=== PATIENT | female | born 1945 | race Caucasian/White ===

== ENCOUNTER 2021-04-27 14:40 | Emergency (ER) | payer MEDICARE, SELFPAY ==
[2021-04-27 15:05] VITALS: BP 167/76; PULSE 84; RESP 18; TEMP 36.9; O2SAT 97; BMI 21.7
--- NOTE | 2021-04-27 15:28 | ECG_ITS ---
[facility] Test Date: 2021-04-27 Pat Name: Claribel Frey Department: Room: Gender: Female Therapeutic Recreation Specialist: : 1945 Requested By: Richie Nath Order Number: [id number] Kelsi MD: Cynthia Alejandre M.D. Measurements Intervals [place] Rate: 83 P: 67 MI: 155 QRS: 65 QRSD: 81 T: 45 QT: 365 QTc: 430 Interpretive Statements SINUS RHYTHM MODERATE ST DEPRESSION [0.05+ mV ST DEPRESSION] INTERPRETATION BASED ON A DEFAULT AGE OF 40 YEARS No previous ECG available for comparison Electronically Signed On 04-28-2021 13:15:56 COLOR PRINT INSPECTOR by Cynthia Alejandre M.D. [id number]
--- NOTE | 2021-04-27 15:28 | XRR_ITS ---
PROCEDURE INFORMATION: Exam: XR Chest Exam date and time: 04/27/2021 3:28 PM Age: 75 years old Clinical indication: Pain; Chest pressure; Additional info: Chest pain TECHNIQUE: Imaging protocol: XR of the chest. Views: 1 view. COMPARISON: No relevant prior studies available. FINDINGS: Lungs: Unremarkable. No consolidation. Pleural spaces: Unremarkable. No pleural effusion. No pneumothorax. Heart/Mediastinum: Ascending thoracic aorta appears somewhat prominent, chest CT could further evaluate this. Bones/joints: Unremarkable. XR/XR chest 1V portable [id number] IMPRESSION: 1. Lungs are clear 2. Ascending thoracic aorta appears somewhat prominent, chest CT could further evaluate this. Radiation Dose CTDIVOL = (mGy): DLP = (mGy-cm)
[2021-04-27 15:48] LABS: Basophils # 0.1 10^3/uL (0.0-0.1); Basophils % 0.6 %; Eosinophils % 0.4 %; Hematocrit 38.2 % (37.0-47.0); Hemoglobin 12.3 g/dL (11.5-15.3); Lymphocytes # 1.6 10^3/uL (0.8-4.8); Lymphocytes % 15.7 %; Mean Corpuscular HGB Conc 32.2 g/dL (30.0-36.0); Mean Corpuscular Hemoglobin 26.6 pg (28.0-34.0); Mean Corpuscular Volume 82.7 fl (81-99); Mean Platelet Volume 9.9 fL (7.4-10.4); Monocytes # 0.5 10^3/uL (0.2-0.9); Neutrophils # 7.99 10^3/uL (1.8-7.7); Neutrophils % 77.8 %; Nucleated Red Blood Cells % 0 %; Platelet Count 336 10^3/cmm (130-400); Red Blood Count 4.62 10^6/uL (4.1-5.3); Red Cell Distribution Width 13.3 % (12.1-15.1); White Blood Count 10.3 10^3/uL (4.0-10.0)
[2021-04-27 16:00] LABS: INR 0.97 (0.8-1.2)
[2021-04-27 16:01] LABS: Partial Thromboplastin Time 35.1 SECONDS (23.9-36.7)
[2021-04-27 16:08] LABS: Troponin(5th) Baseline 31 ng/L (0-10)
[2021-04-27 16:16] LABS: Alanine Aminotransferase 14 U/L (0-33); Albumin Level 4.5 g/dL (3.5-5.2); Alkaline Phosphatase 92 IU/L (35-105); Anion Gap 20.7 (5-19); Aspartate Amino Transferase 17 U/L (0-32); Blood Urea Nitrogen 15 mg/dL (8-23); Calcium 9.4 mg/dL (8.5-10.5); Carbon Dioxide 24 mmol/L (22-29); Chloride 90 mmol/L (98-107); Globulin 2.6 g/dL (1.3-4.6); Glucose 139 mg/dL (65-115); Lipase 10 U/L (13-60); NT Pro B Type Natriuretic Pept 485 pg/mL (0-450); Osmolality Calculated 273 mOsm/kg (285-295); Potassium 4.7 mmol/L (3.5-5.1); Sodium 130 mmol/L (136-145); Total Bilirubin 0.3 mg/dL (0.15-1.2); Total Protein 7.1 g/dL (6.6-8.7)
--- NOTE | 2021-04-27 16:39 | W.ED.CHESTPA ---
HPI - Chest Pain General: Chief Complaint: Chest Pain Stated Complaint: Chest Pain Time Seen by Provider: 04/27/21 15:10 History of Present Illness: HPI narrative: This patient presents to our emergency department because of chest pain symptoms. She states she has been having intermittent chest pain symptoms off and on for the last 2 weeks. She states they are unpredictable in their onset and their duration. She states it is predominantly burning sensation in her lower chest upper abdomen and up into her upper chest. She states that she is here in the emergency department today because she has had similar symptoms most of the day. She states that she does not have any associated shortness of breath or radiation of the pain. She denies fevers chills cough or other constitutional complaints. She states she had an angiogram 11 years ago that was normal without any evidence of coronary artery disease at that time. She states however that she has had 2 siblings at an early age because of coronary artery disease she thinks. She smoked very brief time in her teens but has not smoked since. She has diabetes as well as hypertension that she takes medications faithfully for those conditions. She has not been ill otherwise. She states she has not had any dark tarry stools or blood in her stools. She does take omeprazole on a daily basis. Onset: during rest Pain location: substernal, epigastric and subxiphoid Relieving factors: nothing Associated symptoms: Deny dyspnea, fever(s), nausea, palpitations or vomiting Review of Systems Const: Denies: fever(s), chills or body aches Eyes: Denies: change in vision or blurry vision ENMT: Denies: throat pain or odynophagia Card: Reports: chest pain; Denies: palpitations or irregular heart rhythm Resp: Denies: dyspnea, productive cough or non-productive cough GI: Denies: nausea, vomiting, constipation or hematochezia : Denies: flank pain, difficulty voiding, dysuria or urinary frequency Musc: Denies: neck pain, back pain, extremity pain or extremity swelling Skin/Breast: Denies: rash Neuro: Denies: headache(s), numbness in extremities or weakness in extremities Psych: Denies: anxiety Endo: Denies: polyuria, polydipsia or tired all the time Zac/Lymph: Denies: easy bruising [facility] ED PFSH: Medical History Anxiety Hyperlipidemia Hypertension Pharyngitis Type 2 diabetes mellitus Surgical History Status post appendectomy Status post cholecystectomy Status post hysterectomy Family History (Updated 08/21/20 @ 11:05 by Jade Mccord LPN) Other CAD (coronary artery disease) Social History Smoking and tobacco status: never smoked Alcohol intake: never Physical Exam Const: COMMON NORMALS: no acute distress, patient oriented x3, healthy appearing and alert HENMT: COMMON NORMALS: normocephalic and atraumatic HEAD & SCALP: normocephalic and atraumatic MOUTH: other (Mask per protocol) Eye: COMMON NORMALS: Equal, round and reactive pupils present, EOMs intact bilaterally, conjunctivae normal, no scleral icterus and no papilledema CONJUNCTIVA: Yes conjunctivae normal PUPIL: Yes Equal, round and reactive pupils present DIRECT OPHTHALMOSCOPY: Yes no papilledema Neck/C-Spine: COMMON NORMALS: full ROM, no lymphadenopathy, supple, no JVD, Thyroid normal and No carotid bruits THYROID: Thyroid normal Chest: COMMONS NORMALS: normal inspection of the chest and normal palpation of entire chest wall Resp: COMMON NORMALS: normal respiratory effort, No retractions, No use of accessory muscles, clear to auscultation bilaterally and percussion normal AUSCULTATION: clear to auscultation bilaterally PERCUSSION: percussion normal Cardio: COMMON NORMALS: no JVD, regular rate, regular rhythm, No murmurs present (Cardio) and Peripheral pulses 2+ throughout RATE: regular rate RHYTHM: regular rhythm PERIPHERAL PULSES: Peripheral pulses 2+ throughout GI: COMMON NORMALS: Normal to inspection, nondistended, normoactive bowel sounds present, Soft to palpation, non-tender, No hepatosplenomegaly present and no masses PALPATION: Yes Soft to palpation and Yes No hepatosplenomegaly present : COMMON NORMALS: Yes no CVA tenderness BLADDER/KIDNEY EXAM: Yes no CVA tenderness Back/Pelvis: COMMON NORMALS: no CVA tenderness, thoracic and lumbar spine normal to inspection, no thoracic nor lumbar tenderness and thoraco-lumbar ROM normal Extremity: COMMON NORMALS: normal to inspection, full ROM, capillary refill normal, no clubbing, cyanosis or edema, no calf tenderness and no pedal edema Neuro: COMMON NORMALS: patient oriented x3, no focal motor deficits, no sensory deficits noted and gait normal SENSORIUM/ORIENTATION: Yes alert SPEECH: speech normal Skin: COMMON NORMALS: no rashes or lesions noted GENERAL SKIN EXAM: no rashes or lesions noted Course Reevaluation(s): Reevaluation #1: Patient states she still having some epigastric burning. Her troponin has fallen from her initial reading. Her blood pressure is now 157/76. No other new or focal findings. We will go ahead and give her a gram of Carafate and reassess but I do not feel this represents ongoing myocardial ischemia. Reevaluation #2: Patient states she feels markedly better after the Carafate. Discussed current findings and the limitations of both patient and spouse. I do not feel that this patient is having ACS or any ongoing myocardial ischemia. She does have a high anxiety state and apparently was prescribed Valium recently but does not think that that medication works for her as it makes her dizzy. She previously was taking Librium 10 mg three times a day for her underlying anxiety and irritable bowel. Advised her to stop taking the Valium and we will continue her on Carafate in addition to her omeprazole for the next 2 weeks. We will also prescribe her a short course of Librium until she can get back with her regular doctor. We also discussed return precautions in detail regarding ongoing chest pain shortness of breath or other cardiovascular symptoms. Both she and her spouse acknowledged our discussion and were appreciative of care. Stable for discharge. Vital Signs: Vital signs: Vital Signs Temperature 98.4 F 04/27/21 15:05 Pulse Rate 76 04/27/21 18:07 Respiratory Rate 18 04/27/21 18:07 Blood Pressure 176/81 04/27/21 18:07 Pulse Oximetry 96 04/27/21 18:07 MDM - Chest Pain Lab Data: Labs: Lab Results 04/27/21 04/27/21 04/27/21 15:27 15:27 15:27 WBC 10.3 10^3/uL H 10 ^3/uL (4.0-10.0) RBC 4.62 10^6/uL 10^6 /uL (4.1-5.3) Hgb 12.3 g/dL g/dL (11.5-15.3) Hct 38.2 % % (37.0-47.0) MCV 82.7 fl fl (81-99) MCH 26.6 pg L pg (28.0-34.0) MCHC 32.2 g/dL g/dL (30.0-36.0) RDW 13.3 % % (12.1-15.1) Plt Count 336 10^3/cmm 10^3 /cmm (130-400) MPV 9.9 fL fL (7.4-10.4) Neut % (Auto) 77.8 % % Lymph % (Auto) 15.7 % % [place] % (Auto) 5.0 % % Eos % (Auto) 0.4 % % Baso % (Auto) 0.6 % % Neut # (Auto) 7.99 10^3/uL H 10 ^3/uL (1.8-7.7) Lymph # (Auto) 1.6 10^3/uL 10^3/ uL (0.8-4.8) Marion # (Auto) 0.5 10^3/uL 10^3/ uL (0.2-0.9) Eos # (Auto) 0.0 10^3/uL 10^3/ uL (0.0-0.8) Baso # (Auto) 0.1 10^3/uL 10^3/ uL (0.0-0.1) Nucleated RBC % (a uto) 0 % % Nucleated RBCs # 0.0 /100WBC /100W BC PT 13.20 SECONDS SEC ONDS (12.1-14.9) INR 0.97 (0.8-1.2) APTT 35.1 SECONDS SECO NDS (23.9-36.7) Sodium 130 mmol/L L mmol /L (136-145) Potassium 4.7 mmol/L mmol/L (3.5-5.1) Chloride 90 mmol/L L mmol/ L (98-107) Carbon Dioxide 24 mmol/L mmol/L (22-29) Anion Gap 20.7 H (5-19) BUN 15 mg/dL mg/dL (8-23) Creatinine 0.7 mg/dL mg/dL (0.5-0.9) GFR Calculation Not Reportable Glucose 139 mg/dL H mg/dL (65-115) Calculated Osmolal ity 273 mOsm/kg L mOs m/kg (285-295) Calcium 9.4 mg/dL mg/dL (8.5-10.5) Total Bilirubin 0.3 mg/dL mg/dL (0.15-1.2) AST 17 U/L U/L (0-32) ALT 14 U/L U/L (0-33) Alkaline Phosphata se 92 IU/L IU/L (35-105) Troponin T Baselin e Troponin T 120 Min [place] Troponin T NT-Pro-B Natriuret Pep 485 pg/mL H pg/mL (0-450) Total Protein 7.1 g/dL g/dL (6.6-8.7) Albumin 4.5 g/dL g/dL (3.5-5.2) Globulin 2.6 g/dL g/dL (1.3-4.6) Lipase 10 U/L L U/L (13-60) 04/27/21 04/27/21 15:27 18:06 WBC RBC Hgb Hct MCV MCH MCHC RDW Plt Count MPV Neut % (Auto) Lymph % (Auto) [place] % (Auto) Eos % (Auto) Baso % (Auto) Neut # (Auto) Lymph # (Auto) Marion # (Auto) Eos # (Auto) Baso # (Auto) Nucleated RBC % (a uto) Nucleated RBCs # PT INR APTT Sodium Potassium Chloride Carbon Dioxide Anion Gap BUN Creatinine GFR Calculation Glucose Calculated Osmolal ity Calcium Total Bilirubin AST ALT Alkaline Phosphata se Troponin T Baselin e 31 ng/L H ng/L (0-10) Troponin T 120 Min [place] 26.41 ng/L H ng/L (0-10) Delta Troponin T -4.59 ABS# L ABS# (0-10) NT-Pro-B Natriuret Pep Total Protein Albumin Globulin Lipase EKG Data^: EKG 1: Attestation: I personally reviewed and interpreted this EKG as follows: (EKG shows a ventricular rate of [address] depression however based upon her ST segment compared with [place] segments I do not feel that this represents ST depression at this time. No other abnormalities noted on EKG at this time.) Discharge Plan Discharge Patient Disposition: Home Clinical Impression: Atypical chest pain, Chronic gastroesophageal reflux disease, H/O irritable bowel syndrome Condition: Stable Prescriptions: New Carafate 1 gram tablet 1 g PO TID 28 Days Qty: 84 RF: 0 chlordiazepoxide HCl 10 mg capsule 10 mg PO TID PRN (Reason: anxiety) Qty: 14 RF: 0 No Action metformin 1,000 mg tablet 1,000 mg PO BID RF: 0 glipizide 10 mg tablet 10 mg PO BID RF: 0 Januvia 50 mg tablet 50 mg PO DAILY RF: 0 atenolol 50 mg tablet 50 mg PO DAILY RF: 0 amlodipine [Norvasc] 5 mg tablet 5 mg PO DAILY RF: 0 montelukast [Singulair] 10 mg tablet 10 mg PO DAILY RF: 0 ascorbic acid (vitamin C) 500 mg capsule, extended release 500 mg PO DAILY RF: 0 dicyclomine 10 mg capsule 10 mg PO BID RF: 0 Maximum Daily Multivitamin 18-0.4 mg tablet PO RF: 0 chlordiazepoxide HCl 10 mg capsule 10 mg PO DAILY PRNRF: 0 atorvastatin [Lipitor] 10 mg tablet 10 mg PO DAILY RF: 0 amoxicillin 875 mg tablet 875 mg PO BID 10 Days Qty: 20 RF: 0 Discharge Orders: Discharge ED (Routine); Ordered 04/27/21 Ordered By: Richie Nath Referrals: Chuy Barakat MD [Primary Care Provider] - Discharge Diet: Usual diet Discharge Activity: Resume usual activity Patient Instructions: Opioid Safety Activity Restrictions/Additional Instructions: Do not take any more Valium. Continue all your usual medications. I have prescribed Carafate to use for the next 2-4 weeks. I also given you a few days of additional Librium until you can get with your physician to represcribe that medication. Should you develop any prolonged chest pain, shortness of breath or other concerns return to this or the nearest emergency department. Coding Level of Care Code ED Mud Plant Operator for Rober Fwjemima Exam Comprehensive
--- NOTE | 2021-04-27 17:28 | ECG_ITS ---
[facility] Test Date: 2021-04-27 Pat Name: Claribel Frey Department: Room: Gender: Female Stock Control Clerk: : 1945 Requested By: Richie Nath Order Number: [id number] Kelsi MD: Cynthia Alejandre M.D. Measurements Intervals [place] Rate: 70 P: 58 MI: 155 QRS: 51 QRSD: 84 T: 48 QT: 393 QTc: 424 Interpretive Statements SINUS RHYTHM Compared to ECG 04/27/2021 15:03:19 ST (T wave) deviation no longer present Electronically Signed On 04-28-2021 13:24:44 GRAZING AIDE by Cynthia Alejandre M.D. [id number]
[2021-04-27] MEDS: famotidine 20 mg/2 mL INJ 40 MG IVP (18:05)
[2021-04-27 18:07] VITALS: BP 176/81; PULSE 74; PULSE 76; RESP 18; O2SAT 96
[2021-04-27 18:43] LABS: Troponin 5 2HR 26.41 ng/L (0-10)
[2021-04-27 18:52] LABS: Troponin 5 2HR Delta -4.59 ABS# (0-10)
[2021-04-27] MEDS: sucralfate 1 gm/10 mL Oral Liq UDC PO (19:22)
[2021-04-27 20:45] VITALS: BP 156/77; PULSE 77; RESP 18; O2SAT 96
[2021-04-27 20:50] VITALS: BP 149/77; PULSE 77; RESP 16; O2SAT 97
== END 2021-04-27 20:50 | disposition home or self-care (01) ==
PROVIDERS: Emergency Provider Emergency Medicine; PCP Internal Medicine
DX: R07.89 Other chest pain (principal); K21.9 Gastro-esophageal reflux disease without esophagitis; K58.9 Irritable bowel syndrome, unspecified; Z79.84 Long term (current) use of oral hypoglycemic drugs; E78.5 Hyperlipidemia, unspecified; I10 Essential (primary) hypertension; E11.9 Type 2 diabetes mellitus without complications
CPT/HCPCS: 71045; 80053; 83690; 83880; 84484; 85025; 85610; 85730; 93005; 96374; 99284; J3490